=== PATIENT | male | born 1950 | race Caucasian/White ===

== ENCOUNTER 2021-09-26 16:41 | Emergency (ER) | payer MEDICARE ==
[~2021-09-26] VITALS: Ht 170.2 cm; Wt 68.0 kg
[2021-09-26 16:56] VITALS: BP 130/97
[2021-09-26] MEDS ORDERED: ORPHENADRINE CITRATE 30 MG/ML ML IM ONE (18:30)
[2021-09-26] MEDS ORDERED: TIZA2CAP9 PO (18:55)
[2021-09-26] MEDS ORDERED: NAPR500T6 PO (18:55)
== END 2021-09-26 19:51 | disposition home or self-care (01) ==
LOC: EDH 16:41
DX: M79.621 Pain in right upper arm (principal); I48.91 Unspecified atrial fibrillation; Z79.899 Other long term (current) drug therapy
CPT/HCPCS: 73030; 73060; 96372; 99284; J2360

== ENCOUNTER → 2022-09-28 | Outpatient (CLI) | payer OTHER ==
[~2022-09-28] MED LIST: NAPR500T6 PO; TIZA2CAP9 PO
== END | disposition home or self-care (01) ==
LOC: OIH 07:38
PROVIDERS: ATTEND Physician Assistant
DX: Z13.6 Encounter for screening for cardiovascular disorders (principal); I51.5 Myocardial degeneration
CPT/HCPCS: 75571

== ENCOUNTER 2023-04-28 08:19 | Day surgery (SDC) | payer MEDICARE ==
[2023-04-27 14:56] LABS: BASOPHILS # (AUTO) 0.07 K/uL (0.00-0.20); BASOPHILS % (AUTO) 0.7 % (0.0-5.0); EOSINOPHILS # (AUTO) 0.47 K/uL (0.00-0.70); HEMATOCRIT 32.4 % (42-54); IMMATURE GRANULOCYTE ABSOLUTE 0.04 K/uL (0-1); LYMPHOCYTES # (AUTO) 1.4 K/uL (1.0-4.8); LYMPHOCYTES % (AUTO) 14.8 % (21.0-51.0); MEAN CORPUSCULAR HEMOGLOBIN 25.8 pg (27.0-33.0); MEAN CORPUSCULAR HGB CONC 30.9 g/dL (32.0-36.0); MEAN CORPUSCULAR VOLUME 83.7 fL (79-99); MONOCYTES # (AUTO) 1.3 K/uL (0.1-1.0); MONOCYTES % (AUTO) 13.2 % (3.0-13.0); NEUTROPHILS # (AUTO) 6.2 K/uL (1.8-7.7); NEUTROPHILS % (AUTO) 65.9 % (40.0-77.0); PLATELET COUNT (AUTO) 292 K/uL (130-400); RED BLOOD CELL COUNT(AUTO) 3.87 MIL/uL (4.50-6.20); RED CELL DISTRIBUTION WIDTH 17.9 % (11.0-15.5); WHITE BLOOD COUNT (AUTO) 9.4 K/uL (4.8-10.8)
[2023-04-27 15:04] LABS: CREATININE 1.1 mg/dL (0.5-1.5); POTASSIUM 4.8 mmol/L (3.5-5.1)
[2023-04-27 15:07] VITALS: BP 114/69; PULSE 54; RESP 16
[2023-04-27 15:08] LABS: INR 1.1 (0.85-1.15); PROTHROMBIN TIME 12.7 SEC (9.6-11.6)
[2023-04-27 15:09] LABS: PARTIAL THROMBOPLASTIN TIME 36.7 SEC (26.3-35.5)
[2023-04-27 15:46] LABS: B-TYPE NATRIURETIC PEPTIDE 78 pg/mL (0-100)
[2023-04-28] VITALS (12 sets, daily range): BP systolic 128–176; BP diastolic 67–89; PULSE 41–52; RESP 14–19
[~2023-04-28] VITALS: Ht 170.2 cm; Wt 71.4 kg
[~2023-04-28 08:19] MED LIST changes: +0.9%NACL 1000ML 1,000 ML IV ONE; +FLEC50TA3 PO; +FURO20TA4 PO; +LOSA25TA41 PO; +METO-472 PO; -NAPR500T6 PO; +RIVA20TA PO; -TIZA2CAP9 PO
[2023-04-28] MEDS ORDERED: LIDOCAINE HCL 2% VISCOUS 15 ML UDCUP ONE (09:38)
[2023-04-28] MEDS ORDERED: FENTANYL CITRATE PF 50 MCG/1 ML 2ML VIAL ONE (09:39)
[2023-04-28] MEDS ORDERED: NALOXONE HCL 0.4 MG/1 ML ML ONE (09:39)
[2023-04-28] MEDS ORDERED: FLUMAZENIL 0.1MG/1ML 5ML VIAL IV ONE (09:39)
[2023-04-28] MEDS ORDERED: MIDAZOLAM HCL 1 MG/ML 2ML VIAL ONE (09:39)
== END 2023-04-28 12:55 | disposition home or self-care (01) ==
LOC: DAH 08:19
PROVIDERS: ATTEND Internal Medicine Interventional Cardiology
DX: I48.11 Longstanding persistent atrial fibrillation (principal); I08.0 Rheumatic disorders of both mitral and aortic valves; I42.9 Cardiomyopathy, unspecified; I25.10 Atherosclerotic heart disease of native coronary artery without angina pectoris; I73.9 Peripheral vascular disease, unspecified; G60.8 Other hereditary and idiopathic neuropathies; M79.609 Pain in unspecified limb; Z79.01 Long term (current) use of anticoagulants; Z79.899 Other long term (current) drug therapy
CPT/HCPCS: 80048; 83880; 85025; 85610; 85730; 36415; 71045; 93005 ×2; 93325; 93312; J3010; J7030; J2250; A4615; A4215; A4223 ×3; A7002; A4222; A4221; A4663; A4216; A4606; 99152; J2310; J3490; G0500

== ENCOUNTER → 2023-12-01 | Outpatient (CLI) | payer MEDICARE ==
[~2023-12-01] MED LIST changes: -0.9%NACL 1000ML 1,000 ML IV ONE; -FLEC50TA3 PO; -METO-472 PO
== END | disposition home or self-care (01) ==
LOC: SHCH 07:41
PROVIDERS: ATTEND Student in an Organized Health Care Education/Training Program
DX: I48.91 Unspecified atrial fibrillation (principal)
CPT/HCPCS: 93306

== ENCOUNTER → 2023-12-11 | Outpatient (CLI) | payer MEDICARE ==
[~2023-12-11] MED LIST changes: +AMIO200T44 PO; +APIX5TAB PO; +BALS60OI TP; +DIGO250T PO; -FURO20TA4 PO; +FURO20TA6 PO; +IRON1CAP32 PO; +METO50TA9 PO; -RIVA20TA PO
== END | disposition home or self-care (01) ==
LOC: LAB 14:20
PROVIDERS: ATTEND Internal Medicine Cardiovascular Disease
DX: I48.19 Other persistent atrial fibrillation (principal)
CPT/HCPCS: 36415; 80162

== ENCOUNTER → 2024-01-09 | Outpatient (CLI) | payer MEDICARE ==
[2024-01-09 16:48] LABS: ALBUMIN 3.9 g/dL (3.5-5.0); BILIRUBIN,TOTAL 0.6 mg/dL (0.2-1.0); CREATININE 1.2 mg/dL (0.5-1.3); POTASSIUM 4.3 mmol/L (3.5-5.1); THYROID STIMULATING HORMONE 1.29 uIU/mL (0.36-3.74)
[2024-01-09 16:52] LABS: DIGOXIN 2.28 ng/mL (0.50-2.00)
== END | disposition home or self-care (01) ==
LOC: LAB 15:58
PROVIDERS: ATTEND Internal Medicine Cardiovascular Disease
DX: I48.0 Paroxysmal atrial fibrillation (principal)
CPT/HCPCS: 36415; 80053; 80162; 84443